=== PATIENT | female | born 2000 | race American Indian/Alaskan Native ===

== ENCOUNTER 2020-06-14 16:46 | Emergency (ER) | payer SELFPAY ==
[2020-06-14 17:13] VITALS: BP 118/78
--- NOTE | 2020-06-14 20:29 | Emergency Department Report ---
ED General Adult HPI - General Chief complaint: Skin Rash Stated complaint: EXCEMA INFECTION Source: patient Mode of arrival: Ambulatory Limitations: No Limitations - History of Present Illness Initial comments: Patient is a nulliparous 20-year-old -[place] female with no past medical history presents to the ED with complaint of acute onset persistent itchy erythematous dry scaly rashes bilaterally on her groins as well as under her breasts on the chest for the last 1 week. Patient states that another rash started around her umbilical area and now has some mild pink purulent discharge. Patient states that the itching and the worsening of the rashes has occurred in the last 3 days. Patient denies fever, chills, nausea, vomiting, abdominal pain, dizziness, syncope, chest pain, shortness of breath, sore throat, swollen lips or tongue, dysphagia, dysphonia, wheezing, chest tightness, change in vision, dysuria, urine frequency and urgency and low back pain. MD Complaint: Diffuse itchy erythematous maculopapular rashes -: Sudden, week(s) (1) Location: chest, back, abdomen, genitals (groin) Radiation: non-radiation Quality: burning, other (ITCHY) Consistency: constant Improves with: none Worsens with: none Associated Symptoms: malaise, rash (Diffuse). denies: confusion, chest pain, cough, diaphoresis, fever/chills, headaches, loss of appetite, shortness of breath, syncope, weakness, other Treatments Prior to Arrival: none - Related Data Previous Rx's Medication Instructions Recorded Last Taken Type Griseofulvin Ultramicrosize 250 mg PO Q12H #28 tablet 06/14/20 Unknown Rx Nystatin Oint [Mycostatin Oint] 1 applicatio TP BID #1 tube 06/14/20 Unknown Rx cephALEXin [Keflex] 500 mg PO Q8HR #30 cap 06/14/20 Unknown Rx diphenhydrAMINE [Benadryl CAP] 25 mg PO Q8HR PRN #30 capsule 06/14/20 Unknown Rx Allergies Allergy/AdvReac Type Severity Reaction Status Date / Time No Known Allergies Allergy Unverified 06/14/20 17:11 ED Review of Systems ROS: Stated complaint: EXCEMA INFECTION Other details as noted in HPI Constitutional: denies: chills, fever Eyes: denies: eye pain, eye discharge, vision change ENT: denies: ear pain, throat pain Respiratory: denies: cough, shortness of breath, wheezing Cardiovascular: denies: chest pain, palpitations Endocrine: no symptoms reported Gastrointestinal: denies: abdominal pain, nausea, diarrhea Genitourinary: denies: urgency, dysuria, discharge Musculoskeletal: denies: back pain, joint swelling, arthralgia Skin: rash (diffuse erythematous dry scaly itchy maculopapular rashes on the groins and and under the breasts bilaterally), change in color (erythematous dry scaly rashes under the breasts and in the groins), pruritus. denies: lesions, change in hair/nails Neurological: denies: headache, weakness, paresthesias Psychiatric: denies: anxiety, depression Hematological/Lymphatic: denies: easy bleeding, easy bruising ED Past Medical Hx - Past Medical History Previous Medical History?: No - Surgical History Additional Surgical History: BROKEN NOSE - Medications Home Medications: Home Medications Medication Instructions Recorded Confirmed Last Taken Type Griseofulvin Ultramicrosize 250 mg PO Q12H #28 tablet 06/14/20 Unknown Rx Nystatin Oint [Mycostatin Oint] 1 applicatio TP BID #1 tube 06/14/20 Unknown Rx cephALEXin [Keflex] 500 mg PO Q8HR #30 cap 06/14/20 Unknown Rx diphenhydrAMINE [Benadryl CAP] 25 mg PO Q8HR PRN #30 capsule 06/14/20 Unknown Rx ED Physical Exam - General Limitations: No Limitations General appearance: alert, in no apparent distress - Head Head exam: Present: atraumatic, normocephalic, normal inspection - Eye Eye exam: Present: normal appearance, PERRL, EOMI Pupils: Present: normal accommodation - ENT ENT exam: Present: normal exam, normal orophraynx, mucous membranes moist, TM's normal bilaterally, normal external ear exam - Neck Neck exam: Present: normal inspection, full ROM - Respiratory Respiratory exam: Present: normal lung sounds bilaterally. Absent: respiratory distress, wheezes, rales, stridor, chest wall tenderness, accessory muscle use, decreased breath sounds - Cardiovascular Cardiovascular Exam: Present: regular rate, normal rhythm, normal heart sounds. Absent: systolic murmur, diastolic murmur, rubs, gallop - GI/Abdominal GI/Abdominal exam: Present: soft, normal bowel sounds. Absent: distended, tenderness, guarding, rebound, hyperactive bowel sounds, hypoactive bowel sounds, organomegaly - Extremities Exam Extremities exam: Present: normal inspection, full ROM, normal capillary refill - Back Exam Back exam: Present: normal inspection, full ROM. Absent: tenderness, CVA tenderness (R), muscle spasm, paraspinal tenderness, vertebral tenderness - Neurological Exam Neurological exam: Present: alert, oriented X3, CN II-XII intact, normal gait, reflexes normal - Psychiatric Psychiatric exam: Present: normal affect, normal mood - Skin Skin exam: Present: warm, dry, intact, normal color, rash (Dry erythematous scaly maculopapular rashes under the breasts and in the groins bilaterally), erythema ED Course Vital Signs 06/14/20 17:10 Temperature 98.7 F Pulse Rate 83 Respiratory 20 Rate Blood Pressure 118/78 O2 Sat by Pulse 100 Oximetry ED Medical Decision Making - Medical Decision Making This is a nulliparous 20-year-old -[place] female with no past medical history presents to the ED with complaint of acute onset persistent itchy erythematous dry scaly rashes bilaterally on her groins as well as under her breasts on the chest for the last 1 week. Patient states that another rash started around her umbilical area and now has some mild pink purulent discharge. Patient states that the itching and the worsening of the rashes has occurred in the last 3 days. In the ED, patient is alert and oriented x3 and is not in any distress with normal vital signs. Based on the history and physical exam findings, the patient likely has tinea corporis and tinea cruris with suspected cellulitis in the umbilical area possibly bacterial based on the finding of purulent discharge around the navel. Patient was therefore discharged home on antifungal and antibiotics prescriptions and was advised to follow-up with her primary care physician in 7 to 10 days for reevaluation. Patient advised return to the ED immediately if symptoms get worse or return to the ED immediately if she develops acute onset right upper quadrant abdominal pain. - Differential Diagnosis Tinea corporis; Cellulitis; Acute folliculitis; Tinea cruris Critical care attestation.: If time is entered above; I have spent that time in minutes in the direct care of this critically ill patient, excluding procedure time. ED Disposition Clinical Impression: Tinea corporis, Tinea cruris, Itching with irritation, Cellulitis of abdominal wall Disposition: DC-01 TO HOME OR SELFCARE Is pt being admited?: No Does the pt Need Aspirin: No Condition: Stable Instructions: Body Ringworm, Pruritus, Cellulitis, Adult, [id number] Additional Instructions: Your symptoms are due to severe ringworm of the body called tinea corporis. Therefore take medication as advised, drink plenty of fluids, and follow-up with your primary care physician in 7 to 10 days for reevaluation. Return to the ED immediately should you develop severe right upper quadrant abdominal pain. Otherwise return to the ED immediately if symptoms get worse. Prescriptions: diphenhydrAMINE [Benadryl CAP] 25 mg PO Q8HR PRN #30 capsule PRN Reason: Itching Griseofulvin Ultramicrosize 250 mg PO Q12H #28 tablet cephALEXin [Keflex] 500 mg PO Q8HR #30 cap Nystatin Oint [Mycostatin Oint] 1 applicatio TP BID #1 tube Referrals: [facility] [Provider Group] - 7-10 days Time of Disposition: 20:34 Print Language: TAMAZIGHT
== END 2020-06-14 21:00 | disposition home or self-care (01) ==
LOC: ED 16:46
DX: B35.4 Tinea corporis (principal); B35.6 Tinea cruris; L03.311 Cellulitis of abdominal wall; Z79.899 Other long term (current) drug therapy
CPT/HCPCS: 99281

== ENCOUNTER 2021-02-22 14:36 | Emergency (ER) | payer SELFPAY ==
[2021-02-22 17:01] VITALS: BP 124/76
--- NOTE | 2021-02-22 17:09 | Emergency Department Report ---
Minor Respiratory - HPI Chief Complaint: Upper Respiratory Infection Stated Complaint: sob Time Seen by Provider: 02/22/21 16:58 Duration: 1 Day Minor Respiratory: Yes Cough (slight), Yes Chest Pain (chest wall tenderness), Yes Shortness of Breath, No Rhinorrhea, No Sore Throat, No Ear Pain, No Sick Contacts, No Fever Other History: 21-year-old -[place] female presents to the emergency room complaining of intermittent shortness of breath and intermittent chest pain since last night. Patient states on Thursday she had a fever. She is unvaccinated for flu and Covid. She denies any past medical history currently takes no meds on a daily basis. ED Review of Systems ROS: Stated complaint: sob Other details as noted in HPI Comment: All other systems reviewed and negative ED Past Medical Hx - Surgical History Additional Surgical History: BROKEN NOSE - Social History Smoking Status: Never Smoker Substance Use Type: None - Medications Home Medications: Home Medications Medication Instructions Recorded Confirmed Last Taken Type Griseofulvin Ultramicrosize 250 mg PO Q12H #28 tablet 06/14/20 Unknown Rx Nystatin Oint [Mycostatin Oint] 1 applicatio TP BID #1 tube 06/14/20 Unknown Rx cephALEXin [Keflex] 500 mg PO Q8HR #30 cap 06/14/20 Unknown Rx diphenhydrAMINE [Benadryl CAP] 25 mg PO Q8HR PRN #30 capsule 06/14/20 Unknown Rx Minor Respiratory Exam - Exam General: Vital signs noted. No distress. Alert and acting appropriately. HEENT: Yes Moist Mucous Membranes, No Pharyngeal Erythema, No Pharyngeal Exudates, No Rhinorrhea, No Conjuctival Injection, No Frontal Tenderness, No Maxillary Tenderness Ear: Neither EAC Pain, Neither EAC Discharge Neck: Yes Supple, No Adenopathy Lungs: Yes Good Air Exchange, No Wheezes, No Ronchi, No Stridor, No Cough, No Labored Respirations, No Retractions, No Use of Accessory Muscles, No Other Abnormal Lung Sounds (Chest wall tenderness no swelling appreciated) Heart: Yes Regular, No Murmur Abdomen: Yes Normal Bowel Sounds, No Tenderness, No Peritoneal Signs Skin: No Rash, No Edema Neurologic: Alert and oriented, no deficits. Musculoskeletal: Unremarkable. ED Course Vital Signs 02/22/21 16:59 Temperature 98.2 F Pulse Rate 74 Respiratory 16 Rate Blood Pressure 124/76 [124/76] O2 Sat by Pulse 100 Oximetry ED Medical Decision Making - Medical Decision Making 21-year-old -[place] female presents to the emergency room complaining of intermittent shortness of breath and intermittent chest pain since last night. Patient states on Thursday she had a fever. She is unvaccinated for flu and Covid. She denies any past medical history currently takes no meds on a daily basis. Patient is stable with normal respiratory exam since satting 100% on room air she is nontachycardic or tachypneic. She has no labored breathing she is nontoxic in appearance. Discussed with patient she needs to get Covid tested. Discussed with patient to increase her fluid intake take Tylenol ibuprofen. Follow-up with her primary care provider. Patient can take [id number] cough medication. Critical care attestation.: If time is entered above; I have spent that time in minutes in the direct care of this critically ill patient, excluding procedure time. ED Disposition Clinical Impression: Tenderness of chest wall, Suspected COVID-19 virus infection, Viral syndrome Disposition: HOME / SELF CARE / HOMELESS Is pt being admited?: No Does the pt Need Aspirin: No Condition: Stable Instructions: Chest Wall Pain, [id number], Nonspecific Chest Pain, Adult, [id number], Viral Illness, Adult, COVID-19 Frequently Asked Questions, COVID- 19: How to Protect Yourself and Others - CDC, Prevent the Spread of COVID-19 if You Are Sick - CDC Additional Instructions: Your symptoms appear most consistent with a nonspecific viral syndrome. However, given this current pandemic, COVID-19 is in the differential of possibilities. Despite your previous negative COVID-19 test, I do recommend repeat outpatient Covid 19 testing. In the meantime, isolate/quarantine yourself and stay away from anyone who is elderly, immunocompromised or chronically ill. You can use ibuprofen every 6-8 hours and Tylenol every 4-8 hours, using the dosing on the back of the bottle, as needed for any fever or body aches. Return to the emergency department with any worsening of your symptoms, development of chest pain or shortness of breath, or with any acute distress. Referrals: LOURDES ORTIZ MD [Staff Physician] - 3-5 Days Forms: Work/School Release Form(ED) Time of Disposition: 17:21
== END 2021-02-22 17:52 | disposition home or self-care (01) ==
LOC: ED 14:36
DX: B34.9 Viral infection, unspecified (principal); R07.9 Chest pain, unspecified; Z20.822 Contact with and (suspected) exposure to COVID-19; Z98.890 Other specified postprocedural states
CPT/HCPCS: 99282